=== PATIENT | female | born 1990 | race Caucasian/White ===

== ENCOUNTER 2017-11-09 17:34 | Emergency (ER) | payer SELFPAY ==
[2017-11-09 18:11] VITALS: TEMP 97.7
--- NOTE | 2017-11-09 19:16 | ED.PDOC ---
History of Present Illness - General Chief Complaint: Headache Stated Complaint: headache Time Seen by Provider: 11/09/17 19:13 Source: patient Exam Limitations: no limitations - History of Present Illness Initial Comments: Lynn Cross 27 y/o female stated that she hand dry cough and nasal congestion for the last 3 days and feeling of sinus headach.No ill contact,no chronic medical problems requiring hospitalization. Timing/Duration: other - 3 daqys Severity: moderate Improving Factors: nothing Worsening Factors: nothing Associated Symptoms: other - see hpi Allergies/Adverse Reactions: Allergies NO KNOWN ALLERGY Allergy (Verified 11/09/17 18:11) Home Medications: Ambulatory Orders NK [NK] 11/09/17 Review of Systems - Review of Systems Constitutional: States: no symptoms reported EENTM: States: see HPI Respiratory: States: no symptoms reported Cardiology: States: no symptoms reported Gastrointestinal/Abdominal: States: no symptoms reported Genitourinary: States: no symptoms reported Musculoskeletal: States: no symptoms reported Skin: States: no symptoms reported Neurological: States: no symptoms reported Past Medical History (General) - Patient Medical History Hx Seizures: No Hx Stroke: No Hx Dementia: No Hx Asthma: No Hx of COPD: No Hx Cardiac Disorders: No Hx Congestive Heart Failure: No Hx Pacemaker: No Hx Hypertension: No Hx Thyroid Disease: No Hx Diabetes: No Hx Gastroesophageal Reflux: No Hx Renal Disease: No Hx Cancer: No Hx of HIV: No Hx Hepatitis C: No Hx MRSA: Yes - Wound 2015 MRSA Source:: Wound Surgical History: no surgical history - Vaccination History Hx Tetanus, Diphtheria Vaccination: No Hx Influenza Vaccination: No Hx Pneumococcal Vaccination: No - Social History Hx Tobacco Use: Yes Hx Chewing Tobacco Use: No Hx Alcohol Use: No Hx Substance Use: No Hx Substance Use Treatment: No Hx Depression: No Hx Physical Abuse: No Hx Emotional Abuse: No Hx Suspected Abuse: No - Female History Patient is a Female of Child Bearing Age (10 -59 yrs old): Yes Hx Last Menstrual Period: 10/06/17 Patient : No Family Medical History - Family History Mother Family History: Unknown Physical Exam - Physical Exam General Appearance: Alert, Comfortable Eye Exam: bilateral normal Ears, Nose, Throat: nasal congestion Neck: non-tender, full range of motion, supple Respiratory: chest non-tender, lungs clear, normal breath sounds Cardiovascular/Chest: normal peripheral pulses, regular rate, rhythm, no murmur Peripheral Pulses: radial,right: 2+, radial,left: 2+ Gastrointestinal/Abdominal: normal bowel sounds, non tender, soft, no organomegaly Back Exam: no vertebral tenderness Extremity: normal range of motion, non-tender Progress - Progress Progress: 11/09/17 19:21 Last Vital Signs Temp 97.7 F 11/09/17 17:58 Pulse 88 11/09/17 17:58 Resp 20 11/09/17 19:03 BP 120/78 11/09/17 17:58 Pulse Ox 97 11/09/17 17:58 Departure - Departure Clinical Impression: Viral upper respiratory illness Time of Disposition: 19:22 Disposition: Discharge to Home or Self Care Departure Forms: ED Discharge - Pt. Copy, Patient Portal Self Enrollment Instructions: DI for Viral Upper Respiratory Infection -- Adult Home Medications: Ambulatory Orders NK [NK] 11/09/17 Additional Instructions: Need to use Afrin Nose [place](over the counter 3 days on 3 days off for nasal congestion,May take Benadryl capsule 25 mg one capsule at bedtime;Mucinex DM one tablet am/pm for cough;Need to increase oral fluids
[2017-11-09 19:58] VITALS: BP 118/75; O2SAT 98
== END 2017-11-09 19:59 | disposition home or self-care (01) ==
LOC: ER 17:34
DX: J06.9 Acute upper respiratory infection, unspecified (principal)